=== PATIENT | female | born 1950 | race Caucasian/White ===

== ENCOUNTER → 2024-07-04 11:58 | Outpatient (REF) | payer MEDICARE, OTHER, SELFPAY | LOC: EMG 11:58 | PROVIDERS: ATTENDING PHYSICIAN Nurse Practitioner | DX: R60.0 Localized edema (principal); R20.0 Anesthesia of skin; G56.03 Carpal tunnel syndrome, bilateral upper limbs | CPT/HCPCS: 95886; 95911 ==

== ENCOUNTER → 2024-12-01 15:23 | Outpatient (REF) | payer MEDICARE, OTHER, SELFPAY | LOC: WDC 15:23 | PROVIDERS: ATTENDING PHYSICIAN Nurse Practitioner | DX: Z12.31 Encounter for screening mammogram for malignant neoplasm of breast (principal) | CPT/HCPCS: 77063; 77067 ==

== ENCOUNTER → 2025-01-29 14:43 | Outpatient (REF) | payer MEDICARE, OTHER, SELFPAY | LOC: HWRAD 14:43 | PROVIDERS: ATTENDING PHYSICIAN Internal Medicine Gastroenterology; FAMILY PHYSICIAN Nurse Practitioner | DX: R74.01 Elevation of levels of liver transaminase levels (principal) | CPT/HCPCS: 76700 ==

== ENCOUNTER 2025-02-20 06:44 | Day surgery (SDC) | payer MEDICARE, OTHER, SELFPAY ==
[2025-02-12 14:03] VITALS: BMI 29.2
[2025-02-20] VITALS (10 sets, daily range): BP systolic 106–174; BP diastolic 62–85; BMI 29.2
[2025-02-20 07:07] LABS: Glucose - Point of Care 143 mg/dl (70-99)
[2025-02-20] MEDS: TYLENOL 1000 MG PO (07:07)
[2025-02-20] MEDS: NEURONTIN 300 MG PO (07:07)
[2025-02-20] MEDS: NORMOSOL-R/PLASMALYTE-A 1000 IV (07:08)
[2025-02-20] MEDS: HEPARIN 5000 UNITS SC (07:08)
[2025-02-20 08:24] LABS: Turbo PTH 71.5 pg/ml (14.5-75.2)
--- NOTE | 2025-02-20 08:38 | OR.RPT ---
Operative Report
Operative Report
Date of Operation: February 20, 2025
Preoperative Diagnosis: Parathyroid hyperparathyroidism - E210
Postoperative Diagnosis: Same
Surgeon: Roshan Aceves M.D.
Operation: Resection of the left superior, left inferior, and left superior parathyroid adenomas - 66145
Anesthesia: GET
Estimated Blood Loss: 1 cc
Drains: None
Specimen: Left and Right Superior and Left Inferior neck nodules, rule out parathyroid adenomas.
Complications: None
Procedure:
The patient was taken to the operating room and placed in the usual supine position. After adequate general endotracheal anesthesia was established, the patient's neck was extended, prepped, and draped in the typical sterile fashion. A 4 cm
transcervical incision was made two fingerbreadths above the sternal notch. The skin incision was made with the #15 blade, and this was taken through the skin into the subcutaneous tissue. The underlying platysma muscle was divided, and subplatysmal
flaps were created superiorly to the thyroid cartilage and inferiorly to the sternal notch. Strap muscles were identified and at the midline.
Attention was turned to the left side of the neck. The left thyroid lobe was mobilized medially. During this process, the left recurrent laryngeal nerve was identified and preserved throughout the surgery. The left lower neck nodule was identified
and noted to be enlarged, excised, and sent to the pathology department, which showed a 68 mg hypercellular parathyroid gland. The somewhat enlarged left superior parathyroid gland was identified and preserved. Unfortunately, the intraoperative PTH
level after 15 min increased from 71.5 pg/mL to 86.7 pg/mL. With these results, the neck was explored.
Attention was turned to the patient's right side of the neck. The right thyroid lobe was mobilized medially. During this process, the right recurrent laryngeal nerve was identified and preserved throughout the surgery. An obviously enlarged right
upper neck nodule was identified and noted to be enlarged, excised, and sent to the pathology department, which showed a 305 mg hypercellular parathyroid gland. The inferior parathyroid gland was not identified. Unfortunately, the intraoperative PTH
increase to 600 pg/mL. Therefore, a decision was made to remove the left superior parathyroid gland and sent it to the pathology department, which showed a 96 mg hypercellular parathyroid gland. Finally, the intraoperative PTH levels normalized to
12 pg/mL
After obtaining adequate hemostasis, the strap muscles were reapproximated with #3-0 Vicryl in a running fashion. The platysma muscle was reapproximated with #3-0 Vicryl in an interrupted fashion, and the skin was approximated with #4-0 Monocryl in
a running subcuticular fashion. The Steri-Strips and sterile dressings were placed. The patient tolerated the procedure well. The final instrument, needle, and sponge counts were correct. The patient was extubated and transferred to the PACU.
[2025-02-20 09:09] LABS: Turbo PTH 86.7 pg/ml (14.5-75.2)
[2025-02-20 09:44] LABS: Turbo PTH 216.7 pg/ml (14.5-75.2)
[2025-02-20 10:13] LABS: Turbo PTH 695.2 pg/ml (14.5-75.2)
[2025-02-20 11:15] LABS: Turbo PTH 17.9 pg/ml (14.5-75.2)
[2025-02-20] MEDS: DILAUDID 0.25 MG IV (11:40)
[2025-02-20 12:35] LABS: Glucose - Point of Care 199 mg/dl (70-99)
[2025-02-20] MEDS: NOVOLOG vial 1 UNITS SC (12:43)
== END 2025-02-20 13:27 | disposition home or self-care (01) ==
LOC: SDS 06:44
PROVIDERS: ATTENDING PHYSICIAN Surgery; FAMILY PHYSICIAN Internal Medicine
DX: E21.0 Primary hyperparathyroidism (principal); E21.3 Hyperparathyroidism, unspecified
CPT/HCPCS: 60500; 82962; 83970; 88305; 88331